=== PATIENT | female | born 1990 | race Caucasian/White ===

== ENCOUNTER 2017-10-31 07:57 | Emergency (ER) | payer OTHER ==
[~2017-10-31] VITALS: Ht 160 cm; Wt 104.3 kg
[2017-10-31] MEDS ORDERED: TESSALON PERLE100 MG PO (08:34)
== END 2017-10-31 09:07 | disposition home or self-care (01) ==
LOC: ER 07:57
DX: J00 Acute nasopharyngitis [common cold] (principal); R05 Cough